=== PATIENT | female | born 1985 | race Caucasian/White ===

== ENCOUNTER → 2018-06-04 11:42 | Outpatient (CLI) | payer OTHER, SELFPAY ==
[2018-06-04 13:58] LABS: Internal QC Validated? YES +Cl - CLEAR BKGD; Pregnancy, Urine Negative Negative
== END ==
PROVIDERS: Family Provider Family Medicine; PCP Family Medicine; Visit Provider Physician Assistant
DX: L70.0 Acne vulgaris (principal); B07.8 Other viral warts; Z79.899 Other long term (current) drug therapy
CPT/HCPCS: 81025

== ENCOUNTER → 2018-07-09 11:32 | Outpatient (CLI) | payer OTHER, SELFPAY ==
[2018-07-09 14:19] LABS: Internal QC Validated? YES +Cl - CLEAR BKGD; Pregnancy, Urine Negative Negative
== END ==
PROVIDERS: Family Provider Family Medicine; PCP Family Medicine; Visit Provider Physician Assistant
DX: L70.0 Acne vulgaris (principal)
CPT/HCPCS: 81025

== ENCOUNTER → 2018-08-10 10:34 | Outpatient (CLI) | payer OTHER, SELFPAY ==
[2018-08-10 12:06] LABS: Internal QC Validated? YES +Cl - CLEAR BKGD
[2018-08-10 12:10] LABS: Pregnancy, Urine Negative Negative
== END ==
PROVIDERS: Family Provider Family Medicine; PCP Family Medicine; Visit Provider Physician Assistant
DX: L70.0 Acne vulgaris (principal)
CPT/HCPCS: 81025

== ENCOUNTER → 2018-08-13 08:29 | Outpatient (CLI) | payer OTHER, SELFPAY ==
[2018-08-13 10:19] LABS: Absolute Lymphocyte Count 1.13 X10^3/ul (0.83-4.51); Absolute Neutrophil Count 2.6 X10^3/uL (2.0-7.7); Basophil# 0.02 X10^3/uL; Basophil% 0.5 % (0-1); Eosinophil# 0.07 X10^3/uL; Eosinophils% 1.7 % (0-5); Hematocrit 36.6 % (37-47); Hemoglobin 12.2 g/dl (12.0-15.0); Lymphocyte # 1.13 X10^3/ul (4.0); Lymphocyte % 27.2 % (19-41); Mean Corp Hgb Conc 33.3 g/gl (32-36); Mean Corpuscular Volume 90.1 fL (81-99); Mean Platelet Vol. 11.1 fl (6.2-12.0); Monocyte# 0.36 X10^3/uL; Monocyte% 8.7 % (0-10); Neutrophil # 2.57 X10^3/uL (2.7-7.7); Neutrophil % 61.7 % (47-70); Platelet Count 231 K/mm3 (150-450); RBC Distribution Width CV 12.5 % (11.6-14.6); RBC Distribution Width SD 41.1 fl (35.1-43.9); Red Blood Count 4.06 M/mm3 (4.2-5.4); White Blood Count 4.2 K/mm3 (4.4-11.0)
[2018-08-13 10:20] LABS: POSITIVE COUNT NO; POSITIVE DIFFERENTIAL NO; POSITIVE MORPHOLOGY NO
[2018-08-13 10:47] LABS: AST(SGOT) 22 U/L (15-37); Alanine Aminotransfer ALT/SGPT 29 U/L (13-56); Albumin, Serum 4.1 g/dL (3.2-5.0); Alkaline Phosphatase 48 U/L (45-117); Anion Gap 8 (5-15); BUN 13 mg/dL (7-18); BUN/Creat Ratio 14.9 RATIO (10-20); Chloride 104 mmol/L (98-107); Cholesterol 161 mg/dL (200); Creatinine, Serum 0.88 mg/dL (0.55-1.02); EST Glomerular Filtration Rate 78 mL/min (>60); Est Glom Filt Rate - Afr Amer 95 mL/min (>60); Globulin 4.3 g/dL (2.2-4.2); Glucose 80 mg/dL (74-106); High Density Lipoprotein 66 mg/dL; Potassium 4.1 mmol/L (3.5-5.1); Protein, Total 8.4 g/dL (6.4-8.2); Sodium Level 138 mmol/L (136-145); Triglycerides 60 mg/dL; Very Low Density Lipoprotein 12 mg/dL (5-40)
== END ==
PROVIDERS: Family Provider Family Medicine; PCP Family Medicine; Visit Provider Physician Assistant
DX: L70.0 Acne vulgaris (principal)
CPT/HCPCS: 36415; 80053; 80061; 85025

== ENCOUNTER → 2018-09-14 10:27 | Outpatient (CLI) | payer OTHER, SELFPAY ==
[2018-09-14 12:27] LABS: Internal QC Validated? YES +Cl - CLEAR BKGD; Pregnancy, Urine Negative Negative
== END ==
PROVIDERS: Family Provider Family Medicine; PCP Family Medicine; Referring Provider Physician Assistant; Visit Provider Physician Assistant
DX: L70.0 Acne vulgaris (principal)
CPT/HCPCS: 81025

== ENCOUNTER → 2018-12-20 10:30 | Outpatient (CLI) | payer OTHER, SELFPAY ==
[2018-12-20 12:01] LABS: Internal QC Validated? YES +Cl - CLEAR BKGD; Pregnancy, Urine Negative Negative
--- OUTSIDE RECORDS SUMMARY | 2019-02-21 20:51 | XMS RPT_ITS ---
:1985 Author Organization [facility] Care Team Providers Name Role Phone Tonya Brian Attending Unavailable Tonya Brian Referring Unavailable Ashish Cameron Primary Care Unavailable Tonya Brian Attending Unavailable Tonya Brian Referring Unavailable Ashish Cameron Primary Care Unavailable Tonya Brian Attending Unavailable Tonya Brian Referring Unavailable Ashish Cameron Primary Care Unavailable Tonya Brian Attending Unavailable Tonya Brian Referring Unavailable Ashish Cameron Primary Care Unavailable Tonya Brian Attending Unavailable Ashish Cameron Primary Care Unavailable Brian, Tonya Referring Unavailable Tonya Brian Attending Unavailable Tonya Brian Referring Unavailable Cameron, Ashish Primary Care Unavailable PROBLEMS PROBLEMS DATE TYPE CONDITION / CODE ATTENDING STATUS SOURCE 09/14/2018 Unknown L70.0 - Acne Brian Tonya Active [place] vulgaris / Community L70.0(ICD-10) Hospital Repository PROCEDURES PROCEDURES No Procedure Records FoundRESULTS RESULTS ,URINE Collected: 12/20/2018 Status: F Source: [place] 10:35 AM [facility] [place] CODE TESTS RESULT OUT OF REFERENCE UNITS RANGE LAB L400.8000 Negative Normal HCGUQUAL Negative Result Comment: Very dilute urine specimens, as indicated by a low specific gravity, may not contain credit and collections representative levels of hCG. If is still suspected, a first morning urine specimen should be collected 48 hours later and tested. Performed By: #### L400.7600 #### [facility] [address] [place], [address] ,URINE Collected: 09/14/2018 Status: F Source: [place] 10:30 AM [facility] [place] CODE TESTS RESULT OUT OF REFERENCE UNITS RANGE LAB L400.8000 Negative Normal HCGUQUAL Negative Result Comment: Very dilute urine specimens, as indicated by a low specific gravity, may not contain credit and collections representative levels of hCG. If is still suspected, a first morning urine specimen should be collected 48 hours later and tested. Performed By: #### L400.7600 #### [facility] [address] [facility] [place], [address] CBC W/DIFF, AUTOMATED Collected: 08/13/2018 Status: F Source: [place] 8:34 AM [facility] [place] CODE TESTS RESULT OUT OF RANGE REFERENCE UNITS LAB L100.1000 4.4-11.0 K/mm3 Low WBC 4.2 LAB L100.1200 4.2-5.4 M/mm3 Low RBC 4.06 LAB L100.1300 12.0-15.0 g/dl Normal HGB 12.2 LAB L100.1400 37-47 % Low HCT 36.6 LAB L100.1500 81-99 fL Normal MCV 90.1 LAB L100.1600 27.0-32.0 pg Normal MCH 30.0 LAB L100.1700 32-36 g/gl Normal MCHC 33.3 LAB L100.1810 11.6-14.6 % Normal RDW CV 12.5 LAB L100.1820 35.1-43.9 fl Normal RDW SD 41.1 LAB L100.1900 150-450 K/mm3 Normal PLT 231 LAB L100.2000 6.2-12.0 fl Normal MPV 11.1 LAB L100.2100 47-70 % Normal NEUT% 61.7 LAB L100.2200 19-41 % Normal LY% 27.2 LAB L100.2300 0-10 % Normal MONO% 8.7 LAB L100.2400 0-5 % Normal EO% 1.7 LAB L100.2500 0-1 % Normal BASO% 0.5 LAB L100.2550 0.0-0.9 % Normal IM GRAN % 0.200 Result Comment: IG% - Immature Granulocytes (promyelocytes, myelocytes and metamyelocytes) > 1% indicates that a LEFT SHIFT is Present. LAB L100.2620 2.0-7.7 X10 3/uL Normal Absolute Neut 2.6 LAB L100.2720 0.83-4.51 X10 3/ul Normal Absolute Lymph 1.13 Performed By: #### L100.0100 #### [facility] [address], [address] COMPREHENSIVE METABOLIC Collected: 08/13/2018 Status: F [facility] [place] TYPE CODE TESTS RESULT OUT OF RANGE REFERENCE UNITS LAB L501.0100 74-106 mg/dL Normal GLU 80 Result Comment: Please note revised GLUCOSE reference range effective 2018. LAB L501.1000 7-18 mg/dL Normal BUN 13 LAB L501.1100 0.55-1.02 mg/dL Normal CREAT,SERUM 0.88 Result Comment: The validity of the calculated GFR AND GFRAA in patients over 70 years has not been determined. Clinical correlation is essential. LAB L501.1110 >60 mL/min Normal EST GFR 78 Result Comment: Non- GFR Calc LAB L501.1115 >60 mL/min Normal EST GFR - AA 95 Result Comment: GFR Calc LAB L501.1300 10-20 RATIO Normal BUN/CRE 14.9 LAB L501.1500 6.4-8.2 g/dL High T PROT 8.4 LAB L501.1800 3.2-5.0 g/dL Normal ALB 4.1 LAB L501.1950 2.2-4.2 g/dL High GLOB 4.3 LAB L501.2000 0.9-2.4 RATIO Normal A/G 1.0 LAB L501.2200 8.5-10.1 mg/dL CA Normal 9.0 LAB L501.4100 15-37 U/L Normal AST 22 LAB L501.4305 45-117 U/L Normal ALK P 48 LAB L501.4405 13-56 U/L Normal ALT 29 LAB L501.4600 0.20-1.00 mg/dL T Normal BILI 0.60 LAB L501.5300 136-145 mmol/L NA Normal 138 LAB L501.5600 3.5-5.1 mmol/L K Normal 4.1 LAB L501.5900 98-107 mmol/L CL Normal 104 LAB L501.6100 21.0-32.0 mmol/L Normal CO2 26.0 LAB L501.6200 5-15 Normal GAP 8 Performed By: #### L500.4050, L500.4100 #### [facility] [address] [place], [place], [address] LIPID PROFILE Collected: 08/13/2018 Status: F Source: [place] 8:34 AM [facility] [place] TYPE CODE TESTS RESULT OUT OF RANGE REFERENCE UNITS LAB L501.4900 200 mg/dL Normal CHOL 161 Result Comment: <200 mg/dL Desirable 200-240 mg/dL Borderline >240 mg/dL High Risk LAB L501.5000 mg/dL Normal TRIG 60 Result Comment: The drugs N-Acetylcysteine and Metamizole may falsely depress this assay. Serum Triglycerides Reference Interval Normal <150 mg/dL Borderline high 150 - 199 mg/dL High 200 - 499 mg/dL Very High > or = 500 mg/dL LAB L501.6400 mg/dL Normal HDL 66 Result Comment: The drugs N-Acetylcysteine and Metamizole may falsely depress this assay. Reference Range HDL <40 mg/dL Low HDL Cholesterol HDL >or= 60 mg/dL High HDL Cholesterol LAB L501.6500 0-130 mg/dL Normal LDL 83 LAB L501.6600 5-40 mg/dL Normal VLDL 12 Performed By: #### L500.4050, L500.4100 #### [facility] [facility] [place], [place], [address] ,URINE Collected: 08/10/2018 Status: F Source: [place] 10:46 AM [facility] [place] TYPE CODE TESTS RESULT OUT OF REFERENCE UNITS RANGE LAB L400.8000 Negative Normal HCGUQUAL Negative Result Comment: Very dilute urine specimens, as indicated by a low specific gravity, may not contain credit and collections representative levels of hCG. If is still suspected, a first morning urine specimen should be collected 48 hours later and tested. Performed By: #### L400.7600 #### [facility] [address] [place] [address]. [place], [place], [id number] ,URINE Collected: 07/09/2018 Status: F Source: [place] 11:35 AM [facility] [place] TYPE CODE TESTS RESULT OUT OF REFERENCE UNITS RANGE LAB L400.8000 Negative Normal HCGUQUAL Negative Result Comment: Very dilute urine specimens, as indicated by a low specific gravity, may not contain credit and collections representative levels of hCG. If is still suspected, a first morning urine specimen should be collected 48 hours later and tested. Performed By: #### L400.7600 #### [facility] [facility] [place], [place], [id number] ,URINE Collected: 06/04/2018 Status: F Source: [place] 11:52 AM [facility] [place] TYPE CODE TESTS RESULT OUT OF REFERENCE UNITS RANGE LAB L400.8000 Negative Normal HCGUQUAL Negative Result Comment: Very dilute urine specimens, as indicated by a low specific gravity, may not contain credit and collections representative levels of hCG. If is still suspected, a first morning urine specimen should be collected 48 hours later and tested. Performed By: #### L400.7600 #### [facility] [address] [facility] [place], [place], [address] ALLERGIES ALLERGIES DATE TYPE / CODE NAME / CODE REACTION SEVERITY SOURCE 05/08/2014 Drug No Known Unknown [facility] Allergy/4160 Allergies/F00 [facility] [address](SNOMED 3119578(RXNOR Repository CT) M) ENCOUNTERS ENCOUNTERS ADMIT/DISCHARGE ACCOUNT ADMITTING ENCOUNTER LOCATION SOURCE NUMBER CLASS 12/20/2018 [id number] Ambulatory [place] 8 [facility] ing:MTLAB Repository 09/14/2018 [id number] Ambulatory [place] 6 [facility] ing:MTLAB Repository 08/13/2018 [id number] Ambulatory [place] 2 [facility] ing:LAB.FUTUR Repository E 08/10/2018 [id number] Ambulatory [place] 2 [facility] ing:MTLAB Repository 07/09/2018 [id number] Ambulatory [place] 9 [facility] ing:MTLAB Repository 06/04/2018 [id number] Ambulatory [place] 6 [facility] ing:MTLAB Repository PAYERS PAYERS ENCOUNTER GUARANTOR PAYER SUBSCRIBER SOURCE 12/20/2018 MANUELA BROWN181 Primary MANUELA Szymanski [place] Insurance:AULTCAREPol TISHAB: [facility] STEPH[facility]IE [facility] Number: [id number] [address]Qoi: [id number] Repository Date:2942-19-01[address] ) [address] [address]BW: 12/20/2018 Secondary NOT GIVENUNK [place] Insurance:SELF PAY [facility] Number: Effective Repository Date:2018-12-20 09/14/2018 MANUELA BROWN181 Primary MANUELA Szymanski [place] Insurance:AULTCAREPol ILDEFONSOEYDOB: [facility]: [id number] [address]Trf: [id number] Repository Date:[id number] [address] (OO) [address] [address]KS: 09/14/2018 Secondary NOT GIVENUNK [place] Insurance:SELF PAY [facility] Number: Effective Repository Date:2018-09-14 08/13/2018 MANUELA BROWN181 Primary MANUELA Szymanski [place] Insurance:AULTCAREPol TISHAB: [facility] Number: [id number] [facility] [place] [address]Arq: [id number] Repository Date:7936-63-07[address] () [address] [address]BT: 08/13/2018 Secondary NOT GIVENUNK [place] Insurance:SELF PAY [facility] Number: Effective Repository Date:2018-08-11 08/10/2018 MANUELA TURNER Primary MANUELA R [place] Insurance:AULTCAREPol HARVEYDOB: Community STEPHANIE [place], icy Number: [id number]-Canoncito[facility]Lag[facility] Hospital [address]Zyt: [id number] Repository Date:2529-57-64XK [address] () [address] [address]GU: 08/10/2018 Secondary NOT GIVENUNK [place] Insurance:SELF PAY [facility] Number: Effective Repository Date:2018-08-10 07/09/2018 MANUELA TURNER Primary MANUELA R [place] Insurance:AULTCAREPol HARVEYDOB: [facility] STEPHANIE PINED[place], icy Number: [id number] [address]Ret: [id number] Repository Date:5331-80-23OM [address] () [address] [place] [address]BZ: 07/09/2018 Secondary NOT GIVENUNK [place] Insurance:SELF PAY [facility] Number: Effective Repository Date:2018-07-09 06/04/2018 MANUELA TURNER Primary MANUELA R [place] Insurance:AULTCAREPol HARVEYDOB: Community STEPHANIE PINED[place], [place] Number: [id number] [facility] [place] [address]Vhg: [id number] Repository Date:9633-28-62GM [address] () [address] [address]SZ: 06/04/2018 Secondary NOT GIVENUNK [place] Insurance:SELF PAY [facility] Number: Effective Repository Date:2018-06-04
== END ==
PROVIDERS: Family Provider Family Medicine; PCP Family Medicine; Referring Provider Physician Assistant; Visit Provider Physician Assistant
DX: L70.0 Acne vulgaris (principal)
CPT/HCPCS: 81025

== ENCOUNTER → 2019-01-25 10:31 | Outpatient (CLI) | payer OTHER, SELFPAY ==
[2019-01-25 12:57] LABS: Internal QC Validated? YES +Cl - CLEAR BKGD; Pregnancy, Urine Negative Negative
== END ==
PROVIDERS: Family Provider Family Medicine; PCP Family Medicine; Referring Provider Dermatology Pediatric Dermatology; Visit Provider Dermatology Pediatric Dermatology
DX: L70.0 Acne vulgaris (principal)
CPT/HCPCS: 81025

== ENCOUNTER → 2019-02-28 10:35 | Outpatient (CLI) | payer OTHER, SELFPAY ==
[2019-02-28 12:29] LABS: Internal QC Validated? YES +Cl - CLEAR BKGD; Pregnancy, Urine Negative Negative
== END ==
PROVIDERS: Family Provider Family Medicine; PCP Family Medicine; Referring Provider Physician Assistant; Visit Provider Physician Assistant
DX: L70.0 Acne vulgaris (principal)
CPT/HCPCS: 81025

== ENCOUNTER → 2019-03-30 | Outpatient (CLI) | payer OTHER, SELFPAY ==
[2019-04-04 13:04] LABS: HPV Reflexed? NOT INDICATED
== END | disposition home or self-care (01) ==
LOC: LABSPEC 14:16
PROVIDERS: Visit Provider Obstetrics & Gynecology
DX: Z12.4 Encounter for screening for malignant neoplasm of cervix (principal)
CPT/HCPCS: 88175; G0145

== ENCOUNTER → 2019-04-05 10:40 | Outpatient (CLI) | payer OTHER, SELFPAY ==
[2019-04-05 12:36] LABS: Internal QC Validated? YES +Cl - CLEAR BKGD; Pregnancy, Urine Negative Negative
== END ==
PROVIDERS: Family Provider Family Medicine; PCP Family Medicine; Referring Provider Physician Assistant; Visit Provider Physician Assistant
DX: L70.0 Acne vulgaris (principal)
CPT/HCPCS: 81025

== ENCOUNTER → 2019-06-06 | Outpatient (CLI) | payer OTHER, SELFPAY ==
[2019-06-06 18:01] LABS: Internal QC Validated? YES +Cl - CLEAR BKGD; Pregnancy, Urine Negative Negative
== END | disposition home or self-care (01) ==
LOC: MTLAB 15:21
PROVIDERS: Family Provider Family Medicine; PCP Family Medicine; Referring Provider Physician Assistant; Visit Provider Physician Assistant
DX: L70.0 Acne vulgaris (principal)
CPT/HCPCS: 81025

== ENCOUNTER → 2019-07-11 10:20 | Outpatient (CLI) | payer OTHER, SELFPAY ==
[2019-07-11 12:33] LABS: Internal QC Validated? YES +Cl - CLEAR BKGD; Pregnancy, Urine Negative Negative
== END ==
PROVIDERS: Family Provider Family Medicine; PCP Family Medicine; Referring Provider Physician Assistant; Visit Provider Physician Assistant
DX: L70.0 Acne vulgaris (principal); Z79.899 Other long term (current) drug therapy
CPT/HCPCS: 81025

== ENCOUNTER → 2019-08-22 | Outpatient (CLI) | payer OTHER, SELFPAY ==
[2019-08-22 15:18] LABS: Internal QC Validated? YES +Cl - CLEAR BKGD; Pregnancy, Urine Negative Negative
== END | disposition home or self-care (01) ==
LOC: MTLAB 13:46
PROVIDERS: Family Provider Family Medicine; PCP Family Medicine; Referring Provider Physician Assistant; Visit Provider Physician Assistant
DX: L70.0 Acne vulgaris (principal); Z79.899 Other long term (current) drug therapy
CPT/HCPCS: 81025

== ENCOUNTER → 2019-10-19 09:09 | Outpatient (CLI) | payer OTHER, SELFPAY ==
[2019-10-19 09:51] LABS: Absolute Lymphocyte Count 1.13 X10^3/uL (0.83-4.51); Absolute Neutrophil Count 3.5 X10^3/uL (2.0-7.7); Basophil# 0.02 X10^3/uL; Basophil% 0.4 % (0-1); Eosinophil# 0.12 X10^3/uL; Eosinophils% 2.4 % (0-5); Hematocrit 36.9 % (37-47); Hemoglobin 11.9 g/dL (12.0-15.0); Lymphocyte # 1.13 X10^3/ul (4.0); Lymphocyte % 22.3 % (19-41); Mean Corp Hgb Conc 32.2 g/dL (32-36); Mean Corpuscular Hgb 29.6 pg (27.0-32.0); Mean Corpuscular Volume 91.8 fL (81-99); Mean Platelet Vol. 11.2 fl (6.2-12.0); Monocyte# 0.34 X10^3/uL; Monocyte% 6.7 % (0-10); NRBC Flagged by Analyzer 0 % (0-5); Neutrophil # 3.45 X10^3/uL (2.7-7.7); Platelet Count 195 K/mm3 (150-450); RBC Distribution Width CV 12.6 % (11.6-14.6); RBC Distribution Width SD 42.2 fl (35.1-43.9); Red Blood Count 4.02 M/mm3 (4.2-5.4); White Blood Count 5.1 K/mm3 (4.4-11.0)
[2019-10-19 10:16] LABS: Anion Gap 6 (5-15); BUN 8 mg/dL (7-18); BUN/Creat Ratio 10.8 RATIO (10-20); Calcium,Total 9.1 mg/dL (8.5-10.1); Chloride 106 mmol/L (98-107); Cholesterol 168 mg/dL (200); Creatinine, Serum 0.74 mg/dL (0.55-1.02); EST Glomerular Filtration Rate 94 mL/min (>60); Est Glom Filt Rate - Afr Amer 114 mL/min (>60); Glucose 86 mg/dL (74-106); High Density Lipoprotein 69 mg/dL; Potassium 4.1 mmol/L (3.5-5.1); Sodium Level 138 mmol/L (136-145); Triglycerides 78 mg/dL; Very Low Density Lipoprotein 16 mg/dL (5-40)
[2019-10-19 10:26] LABS: Vitamin D,25 Hydroxy 41.6 ng/mL (29.95-100.01)
== END ==
PROVIDERS: Family Provider Family Medicine; PCP Family Medicine; Referring Provider Family Medicine; Visit Provider Family Medicine
DX: Z00.00 Encounter for general adult medical examination without abnormal findings (principal); R42 Dizziness and giddiness
CPT/HCPCS: 36415; 80048; 80061; 82306; 84443; 85025

== ENCOUNTER → 2019-10-24 14:41 | Outpatient (CLI) | payer OTHER, SELFPAY ==
[2019-10-24 17:39] LABS: Internal QC Validated? YES +Cl - CLEAR BKGD; Pregnancy, Urine Negative Negative
== END ==
PROVIDERS: Family Provider Family Medicine; PCP Family Medicine; Referring Provider Physician Assistant; Visit Provider Physician Assistant
DX: L70.0 Acne vulgaris (principal); Z79.899 Other long term (current) drug therapy; L90.5 Scar conditions and fibrosis of skin
CPT/HCPCS: 81025

== ENCOUNTER → 2019-12-05 10:27 | Outpatient (CLI) | payer OTHER, SELFPAY ==
[2019-12-05 12:47] LABS: Internal QC Validated? YES +Cl - CLEAR BKGD; Pregnancy, Urine Negative Negative
== END ==
PROVIDERS: Family Provider Family Medicine; PCP Family Medicine; Referring Provider Physician Assistant; Visit Provider Physician Assistant
DX: L70.0 Acne vulgaris (principal); B07.8 Other viral warts; R23.8 Other skin changes; Z78.9 Other specified health status
CPT/HCPCS: 81025

== ENCOUNTER → 2021-04-04 13:56 | Outpatient (CLI) | payer OTHER, SELFPAY ==
[2021-04-04 09:50] VITALS: BMI 22.1
[2021-04-09 15:15] LABS: HPV APTIMA, High Risk Negative (Negative)
== END ==
PROVIDERS: PCP Family Medicine; Visit Provider Obstetrics & Gynecology
DX: Z12.4 Encounter for screening for malignant neoplasm of cervix (principal)
CPT/HCPCS: 87624; 88175; G0145

== ENCOUNTER → 2021-04-09 09:29 | Outpatient (CLI) | payer OTHER, SELFPAY ==
[2021-04-04 09:50] VITALS: BMI 22.1
--- NOTE | 2021-04-09 09:30 | BI_ITS ---
MAMMOGRAPHY - BILATERAL DIAGNOSTIC REASON FOR EXAM: Female, 36 years old. Left breast lump. PERTINENT HISTORY: Mother with breast cancer. TECHNIQUE: Digital bilateral breast edmundo (3D mammographic acquisition) in the CC and MLO projections. 2-D mediolateral oblique (MLO) and craniocaudad (CC) views of both breasts were obtained. CAD: Full Field Digital Mammography with Computer Added Detection was performed. COMPARISON: None. Baseline examination. FINDINGS: Breast Composition: The breasts are extremely dense, which lowers the sensitivity of mammography. There are no dominant masses or suspicious calcifications. No other significant abnormalities are identified. BI/DIAG MAMM W/CAD, BILAT IMPRESSION: Negative diagnostic mammogram. With the patient''s history of a left breast lump, correlation with ultrasound is recommended. ASSESSMENT CATEGORY: BIRADS Category 0: Incomplete. Need additional imaging evaluation. A letter regarding these results will be sent to the patient by the facility within 30 days. Approximately 10% of breast cancers are not detected by mammography. A normal mammogram should not delay biopsy of a clinically suspicious abnormality. Electronically Signed: Eric Emery MD at 11:37 EDT , Service support ,
--- NOTE | 2021-04-09 09:32 | US_ITS ---
STUDY: ULTRASOUND BREAST - LEFT REASON FOR EXAM: Female, 36 years old. Palpable lump left breast. History of prior breast biopsy. TECHNIQUE: Axial and longitudinal images of the LEFT breast were performed with a high resolution ultrasound transducer. # OF IMAGES: 14 COMPARISON: Comparison is made with prior examination done earlier in the day. FINDINGS: LEFT Breast: The palpable abnormality corresponds to a 1.1 cm x 1.2 cm x 0.4 cm hypoechoic nodular density with slightly lobulated borders at the 1:30 position of the breast about 4 cm from nipple. A biopsy is recommended. Adjacent to this, a similar appearing nodule measuring 1.8 cm by 1.5 cm x 0.4 cm is seen. US/Breast Limited Unilateral IMPRESSION: There are 2 adjacent hypoechoic solid nodules at the 1:30 position of the breast at 4 cm from the nipple. Biopsy recommended. ASSESSMENT CATEGORY: BIRADS Category 4: Suspicious - Biopsy Should Be Considered. A letter regarding these results will be sent to the patient by the facility within 30 days. Electronically Signed: Eric Emery MD at 12:37 EDT , Service support ,
== END ==
PROVIDERS: PCP Family Medicine; Referring Provider Obstetrics & Gynecology; Visit Provider Obstetrics & Gynecology
DX: N63.20 Unspecified lump in the left breast, unspecified quadrant (principal)
CPT/HCPCS: 76641; 76642; 77062; 77066; G0279

== ENCOUNTER → 2021-04-18 10:57 | Outpatient (CLI) | payer OTHER, SELFPAY ==
[2021-04-18 09:27] VITALS: BMI 22.1
--- NOTE | 2021-04-18 09:30 | BRBX_PTH ---
PATIENT: VANCE BROWN LOC: [facility] U#:[id number] AGE/SX: 40/F ROOM: RE04/18/[address]: Dr. Drew Trejo MD : 1985 BED: DIS: SPEC #: [id number] RECD: 04/18/21 10:51 STATUS: OSITO DAREN #: [id number] ANN: 04/18/21 09:[address]: Drew Trejo DEPT: SURGICAL PATHOLOGY RECD BY: Teresa Yoon ENTERED: 04/18/21 12:57 SP TYPE: BREAST BX OTHR DR: Dr. Ashish Cameron MD Tissues: A - Left breast, NOS B - Left breast, NOS Procedures: Surgery Specimen Level IV HEADER OPERATION: Left breast biopsy x2 PRE-OP DIAGNOSIS: Let breast mass x2 TISSUE SUBMITTED: A ? Left breast at 2 o?clock lateral, B - Left breast at 2 o?clock medial MICROSCOPIC DIAGNOSIS A. Left breast at 2 o?clock lateral, core biopsy: Mild duct ectasia. No evidence of malignancy. B. Left breast at 2 o?clock medial, core biopsy: Fibroadenomatous change. AM:ashleigh 04/19/2021 MICROSCOPIC DESCRIPTION Slides are reviewed. GROSS DESCRIPTION A - Received in fixative is one container labeled with the patient name and designated left breast at 2 o?clock lateral. The specimen consists of multiple elongated fragments of de la garza-yellow fibroadipose tissue that in aggregate measure 1 x 0.5 x 0.1 cm. The entire specimen is submitted in one cassette. B - Received in fixative is one container labeled with the patient name and designated left breast at 2 o?clock medial. The specimen consists of two elongated fragments of de la garza-yellow fibroadipose tissue that in aggregate measure 1.5 x 0.2 x 0.1 cm. The entire specimen is submitted in one cassette. / SJ:ashleigh 04/18/21 TC:5 CPT: 58248 x2
== END ==
LOC: LABSPEC 10:59
PROVIDERS: PCP Family Medicine; Visit Provider Surgery
DX: N63.20 Unspecified lump in the left breast, unspecified quadrant (principal)
CPT/HCPCS: 88305

== ENCOUNTER → 2021-09-19 09:30 | Outpatient (CLI) | payer OTHER, SELFPAY ==
--- NOTE | 2021-09-19 09:32 | US_ITS ---
STUDY: ULTRASOUND BREAST - LEFT REASON FOR EXAM: Female, 36 years old. Left breast mass. 6 month follow-up examination. TECHNIQUE: Axial and longitudinal images of the LEFT breast were performed with a high resolution ultrasound transducer. # OF IMAGES: 12 COMPARISON: Comparison is made with prior study of 04/09/2021. FINDINGS: LEFT Breast: There is a 1.6 cm x 1.2 cm x 0.6 cm hypoechoic lobular solid nodule at the 1:30 to 2 o''clock position of the breast. This is unchanged. Adjacent to this, there is evidence of a 1.3 cm x 0.8 cm x 0.4 cm hypoechoic nodule with slightly lobular borders. There has been essentially no change. US/Breast Limited Unilateral IMPRESSION: Stable examination. ASSESSMENT CATEGORY: BIRADS Category 2: Benign. A letter regarding these results will be sent to the patient by the facility within 30 days. Electronically Signed: Eric Emery MD at 14:37 EDT , Service support ,
== END ==
PROVIDERS: PCP Family Medicine; Referring Provider Surgery; Visit Provider Surgery
DX: R92.8 Other abnormal and inconclusive findings on diagnostic imaging of breast (principal)
CPT/HCPCS: 76642

== ENCOUNTER 2022-02-28 09:09 | Outpatient (CLI) | payer OTHER, SELFPAY ==
[2022-02-28 10:27] LABS: Anion Gap 4 (5-15); BUN 9 mg/dL (7-18); BUN/Creat Ratio 11.4 RATIO (10-20); Calcium,Total 9.1 mg/dL (8.5-10.1); Chloride 107 mmol/L (98-107); Cholesterol 171 mg/dL (200); Creatinine, Serum 0.79 mg/dL (0.55-1.02); EST Glomerular Filtration Rate 86 mL/min (>60); Est Glom Filt Rate - Afr Amer 104 mL/min (>60); Glucose 84 mg/dL (74-106); High Density Lipoprotein 75 mg/dL; Potassium 4.1 mmol/L (3.5-5.1); Sodium Level 138 mmol/L (136-145); Triglycerides 56 mg/dL; Very Low Density Lipoprotein 11 mg/dL (5-40)
== END 2022-02-28 23:59 | disposition home or self-care (01) ==
LOC: MFPLAB 09:13
PROVIDERS: PCP Family Medicine; Referring Provider Family Medicine; Visit Provider Family Medicine
DX: Z00.00 Encounter for general adult medical examination without abnormal findings (principal)
CPT/HCPCS: 36415; 80048; 80061; 82306

== ENCOUNTER → 2023-09-03 | Outpatient (CLI) | payer OTHER, SELFPAY ==
--- NOTE | 2023-09-03 12:27 | BI_ITS ---
MAMMOGRAPHY - BILATERAL SCREENING REASON FOR EXAM: Female, 38 years old. Routine annual screening examination. PERTINENT HISTORY: Mother with breast cancer. Prior left ultrasound-guided breast biopsy. TECHNIQUE: Digital bilateral breast nanci (3D mammographic acquisition) in the CC and MLO projections. 2-D mediolateral oblique (MLO) and craniocaudad (CC) views of both breasts were obtained. CAD: Full Field Digital Mammography with Computer Added Detection was performed. COMPARISON: Comparison is made with prior study dated April 09, 2021. FINDINGS: Breast Composition: The breasts are extremely dense, which lowers the sensitivity of mammography. There are no dominant masses or suspicious calcifications. 2 adjacent tissue markers are seen in the upper outer quadrant of the left breast. No other significant abnormalities are identified. There has been no significant change since the prior study. BI/SCRN MAMM (CAD)W/NANCI BILAT IMPRESSION: Stable bilateral screening mammogram. Yearly follow-up mammogram recommended. (A) ASSESSMENT CATEGORY: BIRADS Category 2: Benign. A letter regarding these results will be sent to the patient by the facility within 30 days. Approximately 10% of breast cancers are not detected by mammography. A normal mammogram should not delay biopsy of a clinically suspicious abnormality. [id number] Electronically Signed: Eric Emery MD at 13:44 EDT ,
== END | disposition home or self-care (01) ==
LOC: OPBI 12:26
PROVIDERS: PCP Family Medicine; Referring Provider Obstetrics & Gynecology; Visit Provider Obstetrics & Gynecology
DX: Z12.31 Encounter for screening mammogram for malignant neoplasm of breast (principal)
CPT/HCPCS: 77063; 77067

== ENCOUNTER → 2024-08-26 | Outpatient (CLI) | payer OTHER, SELFPAY ==
[2024-08-26 11:22] LABS: Anion Gap 6 (5-15); BUN 10 mg/dL (7-18); BUN/Creat Ratio 12.8 RATIO (10-20); Calcium,Total 8.9 mg/dL (8.5-10.1); Chloride 106 mmol/L (98-107); Cholesterol 142 mg/dL (200); Creatinine, Serum 0.78 mg/dL (0.55-1.02); EST Glomerular Filtration Rate 86 mL/min (>60); Est Glom Filt Rate - Afr Amer 104 mL/min (>60); Glucose 84 mg/dL (74-106); High Density Lipoprotein 72 mg/dL; Sodium Level 137 mmol/L (136-145); Triglycerides 56 mg/dL; Very Low Density Lipoprotein 11 mg/dL (5-40)
== END | disposition home or self-care (01) ==
LOC: MFPLAB 08:52
PROVIDERS: PCP Family Medicine; Visit Provider Family Medicine
DX: Z00.00 Encounter for general adult medical examination without abnormal findings (principal)
CPT/HCPCS: 36415; 80048; 80061

== ENCOUNTER → 2024-09-07 | Outpatient (CLI) | payer OTHER, SELFPAY ==
--- NOTE | 2024-09-07 10:40 | BI_ITS ---
MAMMOGRAPHY - BILATERAL SCREENING REASON FOR EXAM: Female, 39 years old. Routine annual screening examination. PERTINENT HISTORY: Mother with breast cancer. History of prior left breast biopsies. TECHNIQUE: Digital bilateral breast nanci (3D mammographic acquisition) in the CC and MLO projections. 2-D mediolateral oblique (MLO) and craniocaudad (CC) views of both breasts were obtained. CAD: Full Field Digital Mammography with Computer Added Detection was performed. COMPARISON: Comparison is made with prior study September 03, 2023 and April 09, 2021. FINDINGS: Breast Composition: The breasts are extremely dense, which lowers the sensitivity of mammography. There are no dominant masses or suspicious calcifications. Once again, 2 adjacent tissue clip marker seen in the upper outer quadrant of the left breast. No other significant abnormalities are identified. There has been no significant change since the prior study. BI/SCRN MAMM (CAD)W/NANCI BILAT IMPRESSION: Stable bilateral screening mammogram. Yearly follow-up mammogram recommended. (A) ASSESSMENT CATEGORY: BIRADS Category 2: Benign. A letter regarding these results will be sent to the patient by the facility within 30 days. Approximately 10% of breast cancers are not detected by mammography. A normal mammogram should not delay biopsy of a clinically suspicious abnormality. [id number] Electronically Signed: Eric Emery MD at 11:53 EDT ,
== END | disposition home or self-care (01) ==
LOC: OPBI 10:40
PROVIDERS: PCP Family Medicine; Referring Provider Obstetrics & Gynecology; Visit Provider Obstetrics & Gynecology
DX: Z12.31 Encounter for screening mammogram for malignant neoplasm of breast (principal)
CPT/HCPCS: 77063; 77067

== ENCOUNTER → 2025-02-27 | Outpatient (CLI) | payer OTHER, SELFPAY ==
[2025-02-27 12:18] LABS: Absolute Lymphocyte Count 1.01 X10^3/uL (0.83-4.51); Absolute Neutrophil Count 2.9 X10^3/uL (2.0-7.7); Basophil# 0.05 X10^3/uL; Basophil% 1.1 % (0-1); Eosinophil# 0.07 X10^3/uL; Eosinophils% 1.6 % (0-5); Hematocrit 29.4 % (37-47); Hemoglobin 8.6 g/dL (12.0-15.0); Lymphocyte # 1.01 X10^3/ul (0.83-4.51); Lymphocyte % 23.2 % (19-41); Mean Corp Hgb Conc 29.3 g/dL (32-36); Mean Corpuscular Hgb 22.1 pg (27.0-32.0); Mean Corpuscular Volume 75.6 fL (81-99); Mean Platelet Vol. 10.6 fl (6.2-12.0); Monocyte# 0.31 X10^3/uL; Monocyte% 7.1 % (0-10); NRBC Flagged by Analyzer 0 % (0-5); Neutrophil % 66.5 % (47-70); Platelet Count 231 K/mm3 (150-450); RBC Distribution Width CV 16.6 % (11.6-14.6); RBC Distribution Width SD 44.7 fl (35.1-43.9); Red Blood Count 3.89 M/mm3 (4.2-5.4); White Blood Count 4.4 K/mm3 (4.4-11.0)
== END | disposition home or self-care (01) ==
PROVIDERS: PCP Family Medicine; Referring Provider Obstetrics & Gynecology; Visit Provider Obstetrics & Gynecology
DX: N93.9 Abnormal uterine and vaginal bleeding, unspecified (principal); N94.6 Dysmenorrhea, unspecified
CPT/HCPCS: 36415; 84443; 85025

== ENCOUNTER → 2025-03-10 | Outpatient (CLI) | payer OTHER, SELFPAY ==
--- NOTE | 2025-03-10 13:17 | US_ITS ---
PROCEDURE: PELVIC W/ TRANSVAGINAL (USPELTVAG), 03/10/2025 REASON FOR EXAM: AUB TECHNIQUE: Grayscale and color doppler transabdominal and transvaginal pelvic ultrasound was performed. COMPARISON: None FINDINGS: Uterus: 8.9 x 6.2 x 4.8 cm, Anteverted and anteflexed. Unremarkable echotexture. Endometrium: 7 mm, trilaminar proliferative phase appearance. Cervix: Unremarkable. Right ovary: 3.2 x 2.3 x 2.2 cm. 1.6 x 1.3 x 1.6 cm hypoechoic lesion with low- level internal echoes. No detected vascularity. Left ovary: 3.5 x 2.3 x 1.8 cm, unremarkable. Free fluid: None visualized. Other: Estimated bladder volume 465 mL.. US/Pelvic w/ Transvaginal IMPRESSION: 1. No acute abnormality or findings which might explain the patient's symptoms. 2. Suspect a 1.6 cm RIGHT ovarian endometrioma. 3. Additional description as above. Reading Location: [id number]
[2025-03-10 15:23] LABS: Ferritin 6 ng/mL (22-378); Iron 15 ug/dL (50-170); Iron Binding Capacity,Total 448 ug/dL (250-450); Iron Binding Capacity,Unsat 433 ug/dL (228-428)
== END | disposition home or self-care (01) ==
PROVIDERS: PCP Family Medicine; Referring Provider Obstetrics & Gynecology; Visit Provider Obstetrics & Gynecology
DX: N93.9 Abnormal uterine and vaginal bleeding, unspecified (principal); N94.6 Dysmenorrhea, unspecified
CPT/HCPCS: 36415; 76830; 76856; 82728; 83540; 83550

== ENCOUNTER → 2025-03-21 | Outpatient (CLI) | payer OTHER, SELFPAY ==
--- NOTE | 2025-03-21 14:13 | EMB_PTH ---
PATIENT: VANCE BROWN LOC: [facility] U#:[id number] AGE/SX: 39/F ROOM: RE03/21/[address]: Dr. Michelle Burch MD : 1985 BED: DIS: 03/21/2025 SPEC #: [id number] RECD: 03/21/25 16:59 STATUS: OSITO RESivakumar #: [id number] ANN: 03/21/25 14:[address]: Michelle Burhc DEPT: SURGICAL PATHOLOGY RECD BY: Teresa Yoon ENTERED: 03/22/25 08:28 SP TYPE: ENDOM BX/C ANNA DR: Dr. Ashish Cameron MD Tissues: Endometrium, NOS Procedures: Surgery Specimen Level IV HEADER OPERATION: Endometrial biopsy PRE-OP DIAGNOSIS: Abnormal uterine bleeding TISSUE SUBMITTED: A- Endometrial tissue MICROSCOPIC DIAGNOSIS A. Endometrium, biopsy: * Secretory phase. MICROSCOPIC DESCRIPTION Slides are reviewed. GROSS DESCRIPTION A. Received in formalin in a container labeled with the patient's name, date of , and EMB are multiple de la garza fragments of soft tissue admixed with blood and mucus measuring 2.3 x 1.4 x 0.5 cm in aggregate. Submitted in toto in A1. SB 03/22/2025 CPT:59029
== END | disposition home or self-care (01) ==
LOC: LABSPEC 16:17
PROVIDERS: PCP Family Medicine; Referring Provider Obstetrics & Gynecology; Visit Provider Obstetrics & Gynecology
DX: N93.9 Abnormal uterine and vaginal bleeding, unspecified (principal)
CPT/HCPCS: 88305

== ENCOUNTER → 2025-05-12 | Outpatient (CLI) | payer OTHER, SELFPAY ==
--- NOTE | 2025-05-12 14:32 | US_ITS ---
PROCEDURE: PELVIC W/ TRANSVAGINAL REASON FOR EXAM: OVARIAN CYST TECHNIQUE: PELVIC W/ TRANSVAGINAL COMPARISON: Prior study dated March 10, 2025. FINDINGS: Measurements: Uterus: 11.1 cm x 6.4 cm x 5 cm with a volume of 185.01 mL Endometrial Thickness: 14.2 mm Right Ovary: 4 cm x 2.5 cm x 2.4 cm with a volume of 12.30 mL. Left Ovary: 3.6 cm x 3.3 cm x 1.9 cm with a volume of 11.69 mL. TRANSABDOMINAL: Uterus: Normal size, myometrial echotexture, and contour. Endometrium: Thickened measuring 14.2 cm. Heterogeneous in appearance. Right ovary: Interval decrease in size of the previously seen complex nodule measuring 1.4 cm x 1.6 cm 1.2 cm. Left ovary: Corpus luteum cyst in the left ovary measuring 2 cm x 1.6 cm 1.3 cm. Other: No large pelvic mass identified. Transvaginal sonography was performed to better visualize the endometrium. TRANSVAGINAL: Uterus: Anteverted. Endometrium: Endometrium is thickened measuring 14.2 mm most likely secondary to patient's menstrual cycle. Right ovary: Interval decrease in size of the previously seen complex lesion measuring 1.4 cm 1.6 cm 1.2 cm. Left ovary: Small cyst in the left ovary measuring 2 cm x 1.6 cm 1.3 cm. Other adnexal findings: None. Cul-de-sac: No free intraperitoneal fluid identified. Tenderness: No tenderness US/Pelvic w/ Transvaginal IMPRESSION: Interval decrease in size of the previously seen complex nodule in the right ov elana as described. New 2 cm x 1.6 cm 1.3 cm cyst in the left ovary. Reading Location: [place] [address]
[2025-05-12 16:18] LABS: Absolute Lymphocyte Count 1.04 X10^3/uL (0.83-4.51); Absolute Neutrophil Count 3.8 X10^3/uL (2.0-7.7); Basophil# 0.03 X10^3/uL; Basophil% 0.6 % (0-1); Eosinophil# 0.09 X10^3/uL; Eosinophils% 1.7 % (0-5); Hematocrit 37.5 % (37-47); Lymphocyte # 1.04 X10^3/ul (0.83-4.51); Lymphocyte % 19.4 % (19-41); Mean Corpuscular Hgb 28.5 pg (27.0-32.0); Mean Corpuscular Volume 89.1 fL (81-99); Mean Platelet Vol. 11.8 fl (6.2-12.0); Monocyte# 0.35 X10^3/uL; Monocyte% 6.5 % (0-10); NRBC Flagged by Analyzer 0 % (0-5); Neutrophil # 3.82 X10^3/uL (2.7-7.7); Neutrophil % 71.4 % (47-70); POSITIVE MORPHOLOGY YES; Platelet Count 166 K/mm3 (150-450); RBC Distribution Width CV 20.6 % (11.6-14.6); RBC Distribution Width SD 64.9 fl (35.1-43.9); Red Blood Count 4.21 M/mm3 (4.2-5.4); White Blood Count 5.4 K/mm3 (4.4-11.0)
[2025-05-12 16:26] LABS: Differential Indicated SCAN CRITERIA MET
[2025-05-12 19:30] LABS: Anisocytosis 2+; Differential Comment SCANNED
== END | disposition home or self-care (01) ==
PROVIDERS: PCP Family Medicine; Referring Provider Obstetrics & Gynecology; Visit Provider Obstetrics & Gynecology
DX: N83.201 Unspecified ovarian cyst, right side (principal); N93.9 Abnormal uterine and vaginal bleeding, unspecified; N83.202 Unspecified ovarian cyst, left side
CPT/HCPCS: 36415; 76830; 76856; 85025

== ENCOUNTER → 2025-08-23 | Outpatient (CLI) | payer OTHER, SELFPAY ==
[2025-08-23 12:23] LABS: Hematocrit 36.8 % (37-47); Hemoglobin 11.8 g/dL (12.0-15.0); Immature Granulocytes Count 0.010 X10^3/uL (0.0-0.0); Mean Corp Hgb Conc 32.1 g/dL (32-36); Mean Corpuscular Volume 94.8 fL (81-99); Mean Platelet Vol. 11.1 fl (6.2-12.0); NRBC Flagged by Analyzer 0 % (0-5); Platelet Count 192 K/mm3 (150-450); RBC Distribution Width CV 13.5 % (11.6-14.6); RBC Distribution Width SD 46.6 fl (35.1-43.9); Red Blood Count 3.88 M/mm3 (4.2-5.4); White Blood Count 4.4 K/mm3 (4.4-11.0)
== END | disposition home or self-care (01) ==
LOC: LAB 11:34
PROVIDERS: PCP Family Medicine; Referring Provider Obstetrics & Gynecology; Visit Provider Obstetrics & Gynecology
DX: N93.9 Abnormal uterine and vaginal bleeding, unspecified (principal)
CPT/HCPCS: 36415; 84443; 85025

== ENCOUNTER → 2025-09-08 | Outpatient (CLI) | payer OTHER, SELFPAY | END | disposition home or self-care (01) | LOC: OPBI 10:00 | PROVIDERS: PCP Family Medicine; Referring Provider Obstetrics & Gynecology; Visit Provider Obstetrics & Gynecology | DX: Z12.31 Encounter for screening mammogram for malignant neoplasm of breast (principal) | CPT/HCPCS: 77063; 77067 ==

== ENCOUNTER → 2025-10-11 | Outpatient (CLI) | payer OTHER, SELFPAY ==
--- NOTE | 2025-10-11 12:22 | US_ITS ---
PROCEDURE: PELVIC W/ TRANSVAGINAL 10/11/2025 REASON FOR EXAM: ABNORMAL UTERINE BLEEDING, OVARIAN CYST TECHNIQUE: Procedure Code: USPELTVAG Modality: US Procedure: PELVIC W/ TRANSVAGINAL FINDINGS: The uterus measures 10.0 cm x 6.7 cm x 4.3 cm. The endometrial stripe measures 12 mm. Nabothian cysts are present. The right ovary measures 4.3 cm x 3.2 cm x 2.1 cm. Normal blood flow is noted. There is a 2.5 cm x 1.6 cm by 1.3 cm simple cystic structure present. Likely a follicular cyst. The left ovary measures 3.3 cm x 1.6 cm x 2.9 cm. There is normal blood flow. There is a 1.5 cm by 1.4 cm x 1.8 cm slightly hypoechoic nodule demonstrating no definite internal blood flow. This was not definitively present on the previous study. Please note the technologist worksheet states "bilateral ovaries appear attached to uterus. ?endometriosis?" No free fluid noted. US/Pelvic w/ Transvaginal IMPRESSION: Simple cystic structure in the right ovary measuring up to 2.5 cm, previously 1 .6 cm. This may be a follicular cyst. Additionally, there is a new complex cystic structure or solid mass in the left ovary measuring up to 1.8 cm. Primary considerations include hemorrhagic cyst and endometrioma. Follow-up ultrasound in 6-12 weeks is recommended. Alternatively, MRI can be considered if clinically indicated. Additional findings as above. Reading [facility]
== END | disposition home or self-care (01) ==
LOC: US 12:20
PROVIDERS: PCP Family Medicine; Referring Provider Obstetrics & Gynecology; Visit Provider Obstetrics & Gynecology
DX: N93.9 Abnormal uterine and vaginal bleeding, unspecified (principal); N83.209 Unspecified ovarian cyst, unspecified side
CPT/HCPCS: 76830; 76856

== ENCOUNTER → 2025-11-06 | Outpatient (CLI) | payer OTHER, SELFPAY ==
[2025-11-06 11:07] LABS: Hematocrit 36.4 % (37-47); Hemoglobin 11.6 g/dL (12.0-15.0); Mean Corp Hgb Conc 31.9 g/dL (32-36); Mean Corpuscular Volume 91.7 fL (81-99); Mean Platelet Vol. 12.0 fl (6.2-12.0); Platelet Count 216 K/mm3 (150-450); RBC Distribution Width CV 12.7 % (11.6-14.6); RBC Distribution Width SD 42.5 fl (35.1-43.9); Red Blood Count 3.97 M/mm3 (4.2-5.4); White Blood Count 4.4 K/mm3 (4.4-11.0)
== END | disposition home or self-care (01) ==
LOC: LAB 10:14
PROVIDERS: PCP Family Medicine; Referring Provider Obstetrics & Gynecology; Visit Provider Obstetrics & Gynecology
DX: Z01.818 Encounter for other preprocedural examination (principal)
CPT/HCPCS: 36415; 85027; 86850; 86900; 86901

== ENCOUNTER 2025-11-10 12:05 | Day surgery (SDC) | payer OTHER, SELFPAY ==
[2025-11-10] VITALS (9 sets, daily range): BP systolic 99–125; BP diastolic 52–81; PULSE 71–91; RESP 16; TEMP 36.3–37.1; O2SAT 100; BMI 20.4
--- NOTE | 2025-11-10 11:23 | PCM.HP.BLA ---
History and Physical Date of Admission: 11/10/25 Vital Signs 09/22/2513:48 10/18/2515:24 Height 5 ft 8 in Weight: 137 lb 136 lb 5 oz BMI 20.8 20.7 BP 129/76 H 134/81 H Intake Visit Reasons: Preop D&C Loren Allergies No Known Allergies Allergy (Verified 10/18/25 15:20) Medications ?Medication ?Instructions ?Recorded ?Confirmed ?Type lactobacillus combination no.8 3 3,000 mmu cells PO DAILY 04/02/20 10/18/25 History billion cell capsule (Adult Probiotic) multivitamin,ji-[id number] 1 tab PO DAILY 04/02/20 10/18/25 History (Complete Multivitamin tablet) magnesium gluconate 27 mg 27 mg PO QDAY 02/27/25 10/18/25 History magnesium (500 mg) tablet PFSH Medical History Abnormal ultrasound of breast Abnormal Pap smear of cervix Surgical History H/O eye surgery [place] teeth extracted H/O breast biopsy Family History Mother Breast cancer, Onset Age: 50 Father Diabetes Hypertension Lymphoma Social History number of children: 2 Smoking Status: Never smoker alcohol intake: never substance use type: does not use diet: other caffeine: Yes what type of physical activity do you participate in: walking, swimming and other details: low impact strength training frequency: 3-4 times per week duration: 30-45 minutes/day seatbelt use: always do you feel safe at home: Yes additional social history: [employer] Patient is a stay at home mom HPI Preop D&C Loren Details: HPI: The patient is a female presenting for a preoperative consultation. Menstrual History - Reports heavy menstrual bleeding, with a significant increase in flow around day 6 or 7 of the cycle. - Has been using tranexamic acid to manage bleeding, which has provided some control. Pelvic Pain - Denies experiencing pelvic pain. Past Medical History - No known diagnosis of endometriosis. Past Diagnostic Results - Recent ultrasound: Revealed a simple cystic structure on the right ovary, likely a follicular cyst, and a hypoechoic nodule on the left ovary. Both ovaries appeared attached to the uterus, raising a question of endometriosis. Subjective Sections: PMHx - Menorrhagia ROS: Constitutional: (+) fatigue Gastrointestinal: (-) bowel complaints Genitourinary: (+) heavy menstrual bleeding, (+) menstrual cramps, (-) pelvic pain, (-) bladder complaints History 2 Elective abortions Hx Para 2 Spontaneous abortions Hx # Term Pregnancies 2 Ectopic pregnancies Hx # Pregnancies Multiple births # of living children 2 Past Pregnancies Del. Date Name GA/Weeks Outcome Route Bth Weight Gen Labor Lgth Anesthesia Del Locatn Provider FOB Unknown 2010 [place] live - full term Female none [facility] Dr. Wilks Unknown 2013 [place] live - full term [facility] Dr. Urbano [facility] ENT: Reports system reviewed and no additional complaints, except as documented Cardio Card: Denies chest pain Resp Resp: Denies cough or dyspnea Musc Musc: Denies arthralgias, back pain or muscle weakness Skin Skin/Breast: Denies alopecia, change in hair, dry skin, breast mass, breast pain or breast skin changes Neuro Neuro: Reports system reviewed and no additional complaints, except as documented Psych Psych: Reports system reviewed and no additional complaints, except as documented Endo Endo: Denies cold intolerance, excessive sweating, heat intolerance or polydipsia Prabhu/Lymph Hematologic/Lymphatic: Denies easy bleeding, Denies easy bruising and Denies lymphadenopathy Exam Const General: cooperative, healthy appearing, comfortable and no acute distress Orientation: alert [facility] Head: normal to inspection and normocephalic Ears: hearing grossly normal bilaterally and external ears normal Nose: external nose normal and nares normal Face and sinus: normal facial exam Neck Neck: normal visual inspection and no lymphadenopathy Thyroid: thyroid normal Chest Chest palpation & inspection: normal inspection of the chest Resp Effort & Inspection: normal respiratory effort Auscultation: clear to auscultation bilaterally Cardio Rate: regular rate Rhythm: regular rhythm Heart Sounds: S1 normal and S2 normal GI Inspection: normal to inspection and non-distended Palpation: soft and no hepatosplenomegaly Musc Other: gross motor intact no deficits, full bilateral strength Skin General: no rashes or lesions noted Neuro General: patient alert, patient awake, moves all extremities and no focal motor deficits Motor: muscle tone normal throughout Extrem General: normal to inspection and no pedal edema Psych Appearance: grossly normal Mental Status: mental status grossly normal Affect: normal affect Speech and Movement: speech and movement normal Coding Level of Care Code Off vis,est,level 4 Diagnoses Ovarian cyst N83.209 Abnormal uterine bleeding N93.9 Dysmenorrhea N94.6 Assessment and Plan Assessment and Plan (1) Ovarian cyst: Status: Acute Comment: left side nodule and right side folliculcar cyst, laparosocpic BS and ovarian cystectomy (2) Abnormal uterine bleeding: Status: Acute Comment: failed lysteda, repeat US. cbc tsh US reviewed. EMB done . plan d an dc hysteroscopy loren (3) Dysmenorrhea: Status: Acute Plan Assessment/Plan: # Abnormal uterine bleeding (N93.9): - Persistent heavy menstrual bleeding with associated fatigue. - Scheduled for dilation and curettage, hysteroscopy, and Loren endometrial ablation to reduce bleeding. - Informed of potential risks including bleeding, infection, and injury to surrounding structures. - Advised no sexual activity or tampon use for two weeks post-procedure; no lifting over 40 pounds for approximately three to four weeks. - Prescriptions for naproxen and Percocet provided for post-operative pain control as needed. - Patient educated on signs of infection or excessive bleeding and instructed to contact the office if these occur. # Cyst of right ovary (N83.201): - Imaging demonstrates a right ovarian cyst with features suggestive of a simple or possibly hemorrhagic component. - Planned laparoscopic evaluation; if suspicious intraoperatively, cyst excision or drainage will be performed. - Fallopian tube removal also planned bilaterally to address any potential pathology and reduce risk of future complications. - Risks and benefits of surgical intervention discussed; patient consented and understands possible need for additional procedures depending on intraoperative findings. # Cyst of left ovary (N83.202): - Ultrasound shows a small lesion; appears less concerning. - Will undergo laparoscopic inspection; if pathology is noted, will manage as clinically indicated, mirroring the approach for the right ovary. - See ?Cyst of right ovary? above for treatment/management plan. # Encounter for other preprocedural examination (Z01.818): - Preoperative evaluation for upcoming procedures on October 17. - Instructed to use special antimicrobial soap from the neck down the night before and morning of surgery. - Advised nothing by mouth for eight hours prior; clear liquids permitted until two hours before arrival. - Supplements may be taken with a sip of water, if desired. - Patient informed to avoid driving for several days postoperatively until pain-free and off narcotic analgesics. - Reviewed potential for further procedures if extensive intraoperative pathology is discovered. Patient Instructions: - Take naproxen as directed for pain relief; use Percocet for breakthrough pain only if needed. - Use the special antiseptic soap provided to wash from your neck down the night before and again the morning of surgery to reduce infection risk. - Do not eat any solid foods for at least 8 hours before surgery; you may have clear liquids until 2 hours before your procedure. - You may take your usual supplements with a small sip of water on the day of surgery. - You may drive once you can control your pain with oral medications, usually within a few days after surgery. - Avoid inserting anything into your vagina (no tampons, douching, or intercourse) for 2 weeks after surgery. - Do not lift more than 40 pounds for the first 3?4 weeks; walking and using stairs as tolerated are fine. - You may resume light lower-body exercises (bodyweight squats and lunges) after about 2 weeks if comfortable?stop any activity that causes abdominal tenderness. - Listen to your body and adjust activities based on how you feel. - Your surgery is scheduled for the : dilation and curettage, hysteroscopy, Loren endometrial ablation, laparoscopic removal of both fallopian tubes, and possible ovarian cyst removal.
[2025-11-10 12:26] LABS: Internal QC Validated? YES +Cl - CLEAR BKGD; Pregnancy, Urine Negative Negative
[2025-11-10] MEDS: Lactated Ringers 1,000 ML 15 ML IV (13:15)
--- NOTE | 2025-11-10 13:23 | PRE.ANES_ITS ---
ASA Classification* ASA Classification ASA Classification: 2 Assessment & Plan Anesthesia* Anesthesia Assessment Anesthesia Assessment: Discussed sedation and/or anesthesia options, risks, benefits, and alternatives with patient/parents/legal guardian/POA. Questions invited. The patient/parents/legal guardian/POA seems to understand and agrees to proceed with anesthesia plan. Reviewed the physical assessment, medical history, allergy history and patient home medications list prior to surgery/procedure/anesthetic and documented any changes. Performed airway and anesthesia risk assessments. Anesthesia Type Anesthesia Type: MAC Anesthesia Focused Assessment* Temperature: 98.8 F Pulse Rate: 71 Blood Pressure: 122/81 Respiratory Rate: 16 Pulse Ox: 100 Airway Assessment Mouth opens: >3 cm Mallampati Score: II Labs Anesthesia Preop lab: CBC WBC, (4.4-11.0) 4.4 K/mm3 11/06/25, 10:16 RBC, (4.2-5.4) 3.97 M/mm3 L 11/06/25, 10:16 Hgb, (12.0-15.0) 11.6 g/dL L 11/06/25, 10:16 Hct, (37-47) 36.4 % L 11/06/25, 10:16 Plt Count, (150-450) 216 K/mm3 11/06/25, 10:16 CHEMISTRY Potassium, (3.5-5.1) 4.0 mmol/L 08/26/24, 08:52 Sodium, (136-145) 137 mmol/L 08/26/24, 08:52 Phosphorus, (2.5-4.9) 3.3 mg/dL 04/08/13, 07:57 BUN, (7-18) 10 mg/dL 08/26/24, 08:52 Creatinine, (0.55-1.02) 0.78 mg/dL 08/26/24, 08:52 Glucose, (74-106) 84 mg/dL 08/26/24, 08:52 TSH, (0.300-4.200) 2.550 uIU/mL 08/23/25, 11:36 COAG Urine Test Negative Negative Today, 12:17 Tst Clinic Negative 03/21/25, 13:57 Pre-Assessment Diagnosis/Proposed Procedure Planned Operative Procedure(s): HYSTEROSCOPY D&C BERENICE POSS BILAT SALPINGECTOMY POSS OVARIAN CYSTECTOMY Anesthesia History Anesthesia History - banking services advisor: Anesthesia History - banking services advisor Hx Hospitalization No 10/30/25 11:04 Any Problems With Anesthesia No 10/30/25 11:04 Cholinesterase deficiency No 10/30/25 11:04 You/Your Family Experience No 10/30/25 11:04 fever (hyperthermia) with Relationship Recent Exposure to Contagious No 11/10/25 12:57 Disease Does patient have nerve No 10/30/25 11:04 stimulator Patient instructed to have device shut off --Does patient have Pacemaker No 11/10/25 12:57 or ICD? When Was Last Pacemaker Check QUESTION #4 FULL TEXT: You/Your Family Experience fever (hyperthermia) with Anesthesia Last Oral Intake Last Oral intake: Last Oral Intake NPO since 04:30 11/10/25 12:57 Meds taken in AM with sips of water? Meds patient instructed to take am of surgery PONV PONV - banking services advisor: PONV - banking services advisor Female Yes 10/30/25 11:04 HX of Motion Sickness Yes 10/30/25 11:04 HX of N/V After Surgery No 10/30/25 11:04 Non-Smoker Yes 10/30/25 11:04 Duration of Surgery greater Yes 10/30/25 11:04 than 60 minutes Number of Risk Factors 4 10/30/25 11:04 PONV Score Severe Risk 10/30/25 11:04 Height & Weight Height & Weight: Anesthesia: Height & Weight Height 5 ft 8 in 11/10/25 12:57 Weight: 61 kg 11/10/25 12:57 Body Mass Index (BMI) 20.4 11/10/25 12:57 Respiratory Assessment Respiratory Assessment - banking services advisor: Respiratory Tract Infection Hx - banking services advisor Hx Respiratory Tract Infection No 10/30/25 11:04 STOP Sleep Apnea STOP Sleep Apnea - banking services advisor: STOP Sleep Apnea - banking services advisor Hx Hypertension No 10/30/25 11:04 Hx Sleep Apnea No 10/30/25 11:04 CPAP BIPAP Do you snore loudly (louder Yes 10/30/25 11:04 than talking or can be heard Do you often feel tired/ Yes 10/30/25 11:04 fatigued/ sleepy during daytime? Has anyone observed you stop Yes 10/30/25 11:04 breathing during sleep? STOP Results Positive 10/30/25 11:04 QUESTION #5 FULL TEXT : Do you snore loudly (louder than talking or can be heard through closed doors)? Tobacco Use History Tobacco Use History - banking services advisor: Tobacco Use History - banking services advisor Tobacco Use Smoking Status Never smoker 10/30/25 11:04 Hx Tobacco Use No 10/30/25 11:04 Years Smoking Packs Smoked per Day Smoking Cessation Date was within the last 15 years Hx Smoking Cessation Date Hx Smoking Cessation Counseling Hematologic Medial History Hematologic Hx - banking services advisor: Hematologic Medical Hx - information clerk brokerage Hx of Blood Transfusion No 10/30/25 11:04 Hx of Transfusion in last 3 No 10/30/25 11:04 Months Date of Last Transfusion (if within last 3 months) Ever experience any problems No 10/30/25 11:04 with transfusion(s)? Specify any problems Hx of Preganancy in last 3 No 10/30/25 11:04 Months Nurse Filling Out Transfusion DSCHRIBER 10/30/25 11:04 & Questions: Date: 10/30/25 10/30/25 11:04 Time: 11:05 10/30/25 11:04 Patient unable to answer at this time (ie. confused, unrespo /Reproduction History /Reproductive History - banking services advisor: /Reproductive Hx- banking services advisor Hx Now No 10/30/25 11:04 Gestational Age (in weeks): EDC: Hx Hx Para Hx Section SAB No 10/30/25 11:04 Does the father of the baby or his family experience fever w Father of the baby Malignant Hypertension history comment Active Medications Active Medications: Current Medications Generic Name Dose Route Start Last Admin Trade Name Freq PRN Reason Stop Dose Admin Lactated Ringer's 1,000 mls @ 15 mls/hr 11/10/25 12:30 11/10/25 13:15 IV 15 mls/hr .Q48H MIRA Administration PFSH Medical History Wears glasses Wears contact lenses Anxiety Cancer Low iron Migraine headache Dietary restriction Non-smoker Abnormal ultrasound of breast Abnormal Pap smear of cervix Home Medications ?Medication ?Instructions ?Recorded ?Last Taken ?Type lactobacillus combination no.8 3 3,000 mmu cells PO DA ROSY 04/02/20 11/10/25 04:30 History billion cell capsule (Adult Probiotic) multivitamin,he-otcy-uaarwsqe 1 tab PO DAILY 04/02/20 Unknown History (Complete Multivitamin tablet) magnesium gluconate 27 mg 27 mg PO QDAY 02/27/25 Unkno wn History magnesium (500 mg) tablet diindolylmethane 50 mg-herbal 2 cap PO DAILY 10/30/25 11/10/25 04:30 History drugs 50 mg capsule (DIM-plus) Allergy/AdvReac Type Severity Reaction Status Date / Time No Known Allergies Allergy Verified 11/10/25 12:48 Family History Mother Breast cancer, Onset Age: 50 Father Diabetes Hypertension Lymphoma Surgical History History of surgical removal of skin lesion H/O eye surgery [place] teeth extracted H/O breast biopsy Social History number of children: 2 Smoking Status: Never smoker alcohol intake: never substance use type: does not use diet: other caffeine: Yes what type of physical activity do you participate in: walking, swimming and other details: low impact strength training frequency: 3-4 times per week duration: 30-45 minutes/day seatbelt use: always do you feel safe at home: Yes additional social history: [employer] isabella Patient is a stay at home mom Review of Systems (Anesthesia) ROS Narrative System reviewed and no additional complaints, except as documented.
[2025-11-10] MEDS: Midazolam 2 MG/2 ML Syringe IV (13:40)
--- NOTE | 2025-11-10 13:45 | EMB_PTH ---
PATIENT: VANCE BROWN LOC: [facility] [place] U#:[id number] AGE/SX: 40/F ROOM: RE11/10/[address]: Dr. Michelle Burch MD : 1985 BED: DIS: 11/10/2025 SPEC #: [id number] RECD: 11/10/25 15:34 STATUS: OSITO REQ #: [id number] ANN: 11/10/25 13:[address]: Michelle Burch DEPT: SURGICAL PATHOLOGY RECD BY: Teresa Yoon ENTERED: 11/13/25 09:22 SP TYPE: ENDOM BX/C OTHR DR: Dr. Ashish Cameron MD Tissues: A - Fallopian tube B - Endometrium, NOS Procedures: Surgery Specimen Level II Surgery Specimen Level IV HEADER OPERATION: Hysteroscopy, D&C, laparoscopic bilateral salpingectomy PRE-OP DIAGNOSIS: Ovarian cyst, abnormal uterine bleeding, dysmenorrhea TISSUE SUBMITTED: A- Bilateral fallopian tubes, B- Endometrial curettings MICROSCOPIC DIAGNOSIS A. Bilateral fallopian tubes, salpingectomy:- No specific pathologic change with complete luminal cross-section confirrmed, x2. B. Endometrium, curettage: - Secretory phase. MICROSCOPIC DESCRIPTION Slides are reviewed. GROSS DESCRIPTION Received in 2 formalin containers labeled with the patient's name and date of . Designated as: A. Bilateral fallopian tubes are 2 undesignated pink-de la garza to durham fimbriated fallopian tubes in 3 pieces, measuring 7.8 x 0.6 cm and 6.4 x 0.6 cm. Paratubal cysts are not grossly identified. Crab Catcher sections are submitted in 4 cassettes.B. Endometrial curettings is a 3.9 x 2.5 x 0.3 cm aggregate of pink-red tissue fragments and clotted blood. Entirely submitted in 2 cassettes. MA 11/13/2025PT:[id number]
[2025-11-10] MEDS: Lidocaine 1% (5 ml sdv) 5 ML Vial IV (13:46)
[2025-11-10] MEDS: DiphenhydrAMINE 50 MG/ML Syringe 12.5 MG IV (13:49)
[2025-11-10] MEDS: fentaNYL 100 MCG/2 ML Ampul IV (14:05)
--- NOTE | 2025-11-10 15:11 | PCM.POST.ANE ---
Anesthesia: Postop Eval I Current Vital Signs Temperature: 97.3 F Pulse Rate: 86 Blood Pressure: 107/69 Respiratory Rate: 16 Pulse Ox: 100 Oxygen Delivery Method: Room Air Assessment Airway patent: Yes Spontaneous unlabored respirations: Yes Mental status: Awake and Calm nausea: No Vomiting: No Anesthesia Complication: No Fluid Hydration Crystalloid volume administer (ml): 1,200 Total IV fluid infused: 1,200 Progress Note Anesthesia document: Postop Eval 1 completed: Yes
--- NOTE | 2025-11-10 15:19 | POSTOPAN2_ITS ---
Anesthesia Postop Eval I Sum Postop Eval Completion status Anesthesia document: Postop Eval 1 completed: Yes Anesthesia Postop Eval I Summary Anesthesia Postop Eval I Summary: Anesthesia Postop Eval I: Assessment Summary Airway patent Yes 11/10/25 15:12 SAMPLE CUTTER.SKOBY Spontaneous unlabored Yes 11/10/25 15:12 SAMPLE CUTTER.SKOBY respirations Mental status Awake,Calm 11/10/25 15:12 SAMPLE CUTTER.SKOBY nausea No 11/10/25 15:12 SAMPLE CUTTER.SKOBY Vomiting No 11/10/25 15:12 SAMPLE CUTTER.SKOBY Anesthesia Postop Eval I: Fluid Summary Crystalloid volume administer 1,200 11/10/25 15:12 SAMPLE CUTTER.SKOBY (ml) Colloids volume administered ( ml) Blood Product volume administered (ml) Total IV fluid infused 1,200 11/10/25 15:12 SAMPLE CUTTER.SKOBY Anesthesia Postop Eval I: Summary Notes Anesthesia Complication No 11/10/25 15:12 SAMPLE CUTTER.SKOBY Anesthesia Complication Comment: Post-operative progress note Anesthesia: Postop Eval II Evaluation Mental status: Awake Pain Level: 0 nausea: No Vomiting: No
--- NOTE | 2025-11-10 15:19 | PCM.POSTANE2 ---
Anesthesia Postop Eval I Sum Postop Eval Completion status Anesthesia document: Postop Eval 1 completed: Yes Anesthesia Postop Eval I Summary Anesthesia Postop Eval I Summary: Anesthesia Postop Eval I: Assessment Summary Airway patent Yes 11/10/25 15:12 DEVELOPMENT EXPERT.SKOBY Spontaneous unlabored Yes 11/10/25 15:12 DEVELOPMENT EXPERT.SKOBY respirations Mental status Awake,Calm 11/10/25 15:12 DEVELOPMENT EXPERT.SKOBY nausea No 11/10/25 15:12 DEVELOPMENT EXPERT.SKOBY Vomiting No 11/10/25 15:12 DEVELOPMENT EXPERT.SKOBY Anesthesia Postop Eval I: Fluid Summary Crystalloid volume administer 1,200 11/10/25 15:12 DEVELOPMENT EXPERT.SKOBY (ml) Colloids volume administered ( ml) Blood Product volume administered (ml) Total IV fluid infused 1,200 11/10/25 15:12 DEVELOPMENT EXPERT.SKOBY Anesthesia Postop Eval I: Summary Notes Anesthesia Complication No 11/10/25 15:12 DEVELOPMENT EXPERT.SKOBY Anesthesia Complication Comment: Post-operative progress note Anesthesia: Postop Eval II Evaluation Mental status: Awake Pain Level: 0 nausea: No Vomiting: No
--- NOTE | 2025-11-10 16:18 | OP.PCM_ITS ---
Multi Select Codes Urinary/Genital Urinary/Genital CPT Codes: 62030 Carolyn/Novasure and 93104 Laproscopic BS/O Operative Report (Standard) Operative Information Date of Procedure: 11/10/25 Pre-Operative Diagnosis: Abnormal uterine bleeding abnormal uterine bleeding ovarian cyst Post-Operative Diagnosis: Abnormal uterine bleeding left sigmoid colon adhesions normal ovaries bilaterally physiologic ovulation cyst left ovary Surgery/Procedure Performed: d and c hysteroscopy carolyn ablation laparoscopic bilateral salpingectomy data sciences director: No Type of Anesthesia: General RN Documented Start/Stop Times: Operation Date: 11/10/25 13:45 Case Time Into Pre-Op 11/10/25 12:16 Out of Pre-Op 11/10/25 13:35 Anesthesia Start 11/10/25 13:39 Into Room 11/10/25 13:39 Procedure Start 11/10/25 14:11 Procedure End 11/10/25 14:53 Anesthesia End 11/10/25 15:04 Out of Room 11/10/25 15:04 Into Recovery 11/10/25 15:07 Into Phase II Recovery 11/10/25 16:00 Out of Recovery 11/10/25 16:00 Procedure Start Time: 14:11 Procedure Stop Time: 14:53 Select all DRAINS/GRAFTS/IMPLANTS that apply: None (bladder drained at beginning of procedure) Estimated Blood Loss: 25 Specimen collected: Yes Description of specimen(s) removed: endometrial curretings and bilateral tubes Description of surgery: Patient was taken in the operating room and was placed under general anesthesia was prepped and draped in normal sterile fashion in the dorsal lithotomy position. Bladder was drained of clear urine and SCDs were on preoperatively. Uterus was sounded and a uterine manipulator was placed after dilating. Attention was then paid to the abdominal portion of the procedure and the umbilicus was elevated with towel clamps and injected with Marcaine and after a 5 mm incision was made and the Veress needle was entered into the abdomen confirmed to be intra-abdominal with a low opening pressure of less than 5 mmHg. Abdomen was insufflated with CO2 gas and a 5 mm optical trocar was placed under direct visualization. Left and right lower quadrant 5 mm ports were placed under direct visualization. Uterus was well visualized and upon inspection of the pelvis fallopian tubes and ovaries were noted to be within normal limits, a physiologic cyst was seen on the left ovary. Some sigmoid colon dictations were noted to the left pelvic sidewall which were taken down with the LigaSure device without complication. Bilateral mesosalpinx were transected after elevating the fallopian tubes bilaterally and starting laterally to medially both fallopian tubes were removed without complication and taken out through the left lower quadrant port without complication.. Excellent hemostasis was noted in the pelvis. Liver and upper abdomen were visualized notably within normal limits and no other gross abnormalities were seen in the abdomen. All instruments removed from the abdomen after gas was desufflated. Port sites were closed with 3-0 Monocryl Steri's and op sites were applied. All instruments removed from the vagina and patient was awoken and taken recovery in stable condition. Patient was prepped and draped in a normal sterile fashion under MAC anesthesia. A weighted speculum was placed in the vagina and the anterior lip of the cervix was grasped with a single-tooth tenaculum. cervix was progressively dilated to allow passage of a 7 mm hysteroscope. The lining was fully visualized and noted to have no polyps or abnormalities. Uterus sounded to 10 cm. Curettage was performed and tissue was sent to pathology. The Carolyn device was opened and the cavity length was found to be 5.5 cm. Device was inserted into the uterus and balloon inflated and device deployed. Integrity of the cavity was confirmed and a 2 minute treatment cycle was completed without complication. All instruments were removed from the vagina and excellent hemostasis was noted. Patient was awoken and taken to recovery in stable condition. Surgical Findings: nl uterine cavity nl tubes and ovaries Complications Complications: No
--- NOTE | 2025-11-10 16:19 | DCINST_ITS ---
Discharge Instructions DC O2, CPAP, BIPAP needs Home O2 Discharge instructions: No Dressing / Incision Discharge Activity: Return to Normal Activity, May Not Drive ( while taking narcotic pain meds, when pain free), May Shower and May Take a Tub Bath (in 7 days) May resume sexual activity in: 1 week Weight Bearing Status: Full weight bearing Dressing / Incision Call your doctor if your incision/area has: Continuous Slow Oozing, Sudden Increased Bleeding, Increased Pain/ Swelling, Increased Redness and Foul Smelling Discharge Call your doctor if you observe: Fever of 101 or Higher, Using more than 1 pad per hour, Shortness of breath, Chest pain and Uncontrolled pain Suture Line Care: Avoid Pulling/Pushing and Avoid Pinching/Bending Remove Dressing in: 1 week (if present) Cleanse incision/area with: Soap & Water and Keep Dressing Clean & Dry Follow Up Care When: Call to make an appointment with your doctor for a fu/incision check in 1- 2 weeks. Test Results: Test results from this visit will be discussed in further detail at your follow- up appointment, if applicable. Discharge Plan Admission Attending Provider: Michelle Burch Primary Care Provider: Ashish Cameron Instructions Print Language: Kyrgyz Discharge Orders/Prescriptions Prescriptions: New oxycodone-acetaminophen [Percocet] 5-325 mg tablet 1 tab PO Q4H PRN (Reason: pain) 7 Days Qty: 10 0RF naproxen 500 mg tablet 500 mg PO BID PRN PRN (Reason: Pain) Qty: 30 1RF No Action Complete Multivitamin Tablet 1 tab PO DAILY Adult Probiotic 3 billion cell capsule 3,000 mmu cells PO DAILY Rx Instructions: administer with a meal magnesium gluconate 27 mg magnesium (500 mg) tablet 27 mg PO QDAY DIM-plus 50-50 mg capsule 2 cap PO DAILY Referrals / Follow Up: Ashish Cameron MD [Primary Care Provider, Family Practice] Disposition Disposition (needs filled in before D/C Order can be placed): Home, Self Care
== END 2025-11-10 17:28 | disposition home or self-care (01) ==
LOC: SDC 12:07 → AC 12:19
PROVIDERS: PCP Family Medicine; Referring Provider Obstetrics & Gynecology; Visit Provider Obstetrics & Gynecology
PROC: 0U5B8ZZ Destruction of Endometrium, Via Natural or Artificial Opening Endoscopic (ICD-10-PCS; CPT 58558; principal; 2025-11-10 13:30)
DX: N93.9 Abnormal uterine and vaginal bleeding, unspecified (principal); N83.202 Unspecified ovarian cyst, left side; N83.201 Unspecified ovarian cyst, right side; N94.6 Dysmenorrhea, unspecified; K66.0 Peritoneal adhesions (postprocedural) (postinfection)
CPT/HCPCS: 58661; 58563; 00840; 81025; 88302; 88305; J2405